=== PATIENT | male | born 1990 | race Caucasian/White ===

== ENCOUNTER 2019-04-14 15:18 | Emergency (ER) | payer SELFPAY ==
[2019-04-14 15:22] VITALS: BP 149/104; PULSE 86; RESP 18; TEMP 36.1; O2SAT 98
--- NOTE | 2019-04-14 15:45 | ED.GENADUL_ITS ---
Discharge Plan Disposition Patient Disposition: HOME Condition: Good Discharge Details Chief Complaint: Sorethroat Clinical Impression: Exposure to the flu, Acute pharyngitis Primary Care Provider: None,None ED Provider: Piper Elizabeth Home Meds and New Rx's Prescriptions: New oseltamivir [Tamiflu] 75 mg capsule 75 mg PO DAILY Qty: 10 RF: 0 Continued sertraline 100 mg Tablet 100 mg PO DAILY RF: 0 lisinopril 10 mg Tablet 10 mg PO DAILY RF: 0 Discharge Instructions Instructions: Pharyngitis (ED) Additional Instructions: Encourage water intake. Tylenol and/or ibuprofen as needed for discomfort. You may use honey to help with sore throat. Lozenges may also be of benefit. If you develop difficulty breathing or shortness of breath, inability stay hydrated or other new/worsening symptoms please seek care urgently once again. Was you are exposed to flu recently, please begin the Tamiflu as prescribed to help prevent illness. Please follow-up with primary care next week if not completely improved. Discharge Data Discharge Date/Time-TO BE ENTERED AT DEPARTURE: 04/14/19 16:39 Medical Decision Making Patient is a pleasant 29-year-old male presents today with chief complaint of sore throat that began yesterday. He is concerned that his growth was diagnosed with influenza today. He denies any cough, has had some chills but no fever. Denies any GI upset. No recent travel. Denies any shortness of breath or difficulty breathing. States that he has been hydrating well. No difficulty with eating. On exam, patient appears nontoxic. He does have erythema and mild hypertrophy of bilateral tonsils but no exudate noted. He has no uvular shift, tonsils are equal bilaterally, no trismus or change in his voice. Lungs are clear bilaterally. Patient is negative for rapid flu and negative for strep testing. Discussed these findings with the patient. Advised likely viral etiology. We discussed [id number] home regimens. As the patient was exposed to a known person with test confirmed influenza, we will begin him on prophylactic Tamiflu. We did discuss possible side effects. He was given strict return precautions. Advise a follow-up with primary care in 1 week if not improving. All his questions and concerns were addressed and is in agreement this plan. HPI General Mode of arrival: ambulatory . Date/Time Provider Initiated Documentation: 04/14/19 15:26 . Limitations to Documentation: no limitations . Information obtained by: patient and RN notes reviewed . History of Present Illness 29 year old M presents to the emergency department with the chief complaint of sore throat, aching muscles in neck/back, described as moderate, with intensity rated at 6. Quality is described as aching, and is localized to the mouth. Patient reports no radiation. Patient started experiencing this day(s) (1) and it has been constant. No relieving factors improve symptom(s), No exacerbating factors reported . Patient notes fever/chills (chills, no fever); denies loss of appetite, nausea/vomiting, rash, shortness of breath and weakness. Patient did receive the following treatments prior to arrival, none Related Data Home Medications Medication Instructions Recorded Confirmed lisinopril 10 mg PO DAILY 04/14/19 04/14/19 oseltamivir [Tamiflu] 75 mg PO DAILY #10 cap 04/14/19 sertraline 100 mg PO DAILY 04/14/19 04/14/19 Previous Rx's Medication Instructions Recorded oseltamivir [Tamiflu] 75 mg PO DAILY #10 cap 04/14/19 Allergies Allergy/AdvReac Type Severity Reaction Status Date / Time No Known Allergies Allergy Unverified 04/14/19 15:26 General Stated Complaint: GenMedical TYREE: 3 Review of Systems Constitutional Constitutional: Reports as per HPI and Denies headache(s) Eyes Eyes: Reports as per HPI, Denies eye discharge and Denies irritation ENT Ears, Nose, Mouth, and Throat: Reports as per HPI and Denies headache(s) Cardiovascular Cardiovascular: Reports as per HPI, Denies chest pain and Denies dyspnea Respiratory Respiratory: Reports as per HPI and Denies dyspnea Gastrointestinal Gastrointestinal: Reports as per HPI, Denies abdominal pain, Denies change in bowel habits, Denies nausea and Denies vomiting Integumentary/Breasts Skin/Breast: Reports as per HPI and Denies rash Neurologic Neurologic: Reports as per HPI and Denies headache(s) [facility] Social History Smoking/Tobacco Use Status: Never Alcohol Intake: current Drug use: Never Substance use type: does not use Exam Const General: cooperative, healthy appearing, comfortable, no acute distress, well developed and well groomed Nutritional Appearance: well nourished and overweight Orientation: alert and awake [facility] Head: normal to inspection, normocephalic and atraumatic Ears: hearing grossly normal bilaterally, external ears normal and TM's normal bilaterally General nose exam: external nose normal and nares normal Face and sinus: normal facial exam, sinuses nontender and face symmetric Mouth: oral mucosae normal, lip normal, tongue normal, oropharynx normal and moist mucous membranes Teeth and gingiva: dentition normal Throat: posterior oropharynx abnormal (mild erythema), tonsils normal and uvula midline Eyes General: appearance normal, both eyes and all related structures Neck Neck: normal visual inspection, full ROM, no lymphadenopathy and no meningeal signs Resp Effort & Inspection: normal respiratory effort, able to speak in complete sentences and no respiratory distress Auscultation: clear to auscultation bilaterally, no rales, no rhonchi and no wheezes Cardio Rate: regular rate Rhythm: regular rhythm Heart Sounds: S1 normal and S2 normal Skin General skin exam: no rashes or lesions noted Neuro General: alert and awake Cognition: normal cognition Speech: speech normal Gait: normal gait Psych Appearance: grossly normal and well kempt Mental Status: mental status grossly normal Speech and Movement: speech and movement normal Course Vital Signs Vital signs: Vital Signs Temperature 36.1 C L 04/14/19 15:22 Pulse 86 04/14/19 15:22 Respiratory Rate 18 04/14/19 15:22 Blood Pressure 149/104 H 04/14/19 15:22 Pulse Oximetry 98 04/14/19 15:22 Temperature 36.1 C L 04/14/19 15:22 Temperature Source Temporal Artery Scan 04/14/19 15:22 Pulse 86 04/14/19 15:22 Respiratory Rate 18 04/14/19 15:22 Blood Pressure 149/104 H 04/14/19 15:22 Blood Pressure Position Supine 04/14/19 15:22 Pulse Oximetry 98 04/14/19 15:22 Oxygen Delivery Method Room Air 04/14/19 15:22 Oxygen Flow Rate 0 04/14/19 15:22 Pain Level 6 04/14/19 15:22
[2019-04-14 16:32] VITALS: BP 138/94; PULSE 74; RESP 20; TEMP 36.8; O2SAT 98
== END 2019-04-14 16:39 | disposition home or self-care (01) ==
PROVIDERS: Emergency Provider Physician Assistant
DX: J11.1 Influenza due to unidentified influenza virus with other respiratory manifestations (principal)
CPT/HCPCS: 87449; 87880; 99283; 87081

== ENCOUNTER 2020-06-15 18:21 | Outpatient (REF) | payer BC, SELFPAY ==
[2020-06-15 21:34] LABS: Hemoglobin A1C 5.7 % (<5.7)
[2020-06-15 21:47] LABS: ALT 104 U/L (16-63); AST 53 U/L (15-37); Calculated LDL 83 mg/dL (<100); Cholesterol 151 mg/dL (<200); HDL Cholesterol 44 mg/dL (40-60); Triglyceride 120 mg/dL (<150)
[2020-06-17 09:12] LABS: HBs Antibody, Quant <3.1 mIU/mL (See Note); Hepatitis B Surface Ab Negative (See Note)
[2020-06-17 09:17] LABS: Hepatitis B Surface Ag Negative (Negative)
[2020-06-17 09:53] LABS: HIV-1/2 Ag & Ab Screen Negative (Negative)
[2020-06-17 11:20] LABS: Syphilis Serology (RPR) Negative (Negative)
[2020-06-17 15:27] LABS: HCV RNA Qualitative Undetected (Undetected)
== END 2020-06-15 18:22 | disposition home or self-care (01) ==
LOC: NCHCN 18:21
PROVIDERS: Visit Provider Nurse Practitioner Family
DX: Z11.3 Encounter for screening for infections with a predominantly sexual mode of transmission (principal); Z11.4 Encounter for screening for human immunodeficiency virus [HIV]; Z11.59 Encounter for screening for other viral diseases; E66.9 Obesity, unspecified; Z13.1 Encounter for screening for diabetes mellitus
CPT/HCPCS: 80061; 86706; 87340; 87389; 87522; 83036; 84450; 84460; 86592

== ENCOUNTER 2020-06-17 17:45 | Outpatient (REF) | payer BC, SELFPAY ==
[2020-06-17 19:42] LABS: Bilirubin Negative (Negative); Blood Trace-lysed (Negative); Clarity Clear (Clear); Glucose Negative (Negative); Ketones Negative (Negative); Leukocyte Esterase Negative (Negative); Nitrite Negative (Negative); Specific Gravity >= 1.030 (1.005-1.025); Urobilinogen 0.2 EU/dL (Up TO 0.2); pH 5.5 (5-8)
[2020-06-17 19:49] LABS: Bacteria Negative HPF (Negative); C & S Indicated? No; Casts Negative LPF (Negative); Crystals Negative HPF (Negative); Epithelial Cells Rare HPF (Negative); Mucus Negative (Negative); RBC 0-2 HPF (0-2); WBC 0-2 HPF (0-5)
[2020-06-22 10:20] LABS: Chlamydia Result Negative (Negative); GC Result Negative (Negative)
== END 2020-06-17 17:46 | disposition home or self-care (01) ==
LOC: NCHCN 17:45
PROVIDERS: Visit Provider Nurse Practitioner Family
DX: R31.9 Hematuria, unspecified (principal)
CPT/HCPCS: 87491; 87591; 81003; 81015

== ENCOUNTER 2020-08-30 15:12 | Outpatient (REF) | payer BC, SELFPAY ==
[2020-08-30 21:39] LABS: HCT 45.5 % (40.0-50.0); HGB 15.2 g/dL (13.5-17.5); MCH 27.2 pg (27.0-33.0); MCHC 33.4 % (32.0-36.0); MCV 81.5 fL (80-95); MPV 9.8 fL (8.0-11.0); Platelet Count 281 10^3/uL (130-400); RBC 5.58 10^6/uL (4.36-5.78); RDW 12.7 % (11.8-14.1); RDW-SD 37.7 fL; WBC 12.22 10^3/uL (4.4-10.8)
[2020-08-30 22:04] LABS: ALT 74 U/L (16-63); AST 34 U/L (15-37); Albumin 3.8 g/dL (3.4-5.0); Alkaline Phosphatase 68 U/L (46-116); Anion Gap 10.5 mmol/L (3-11); BUN 11 mg/dL (7-18); Bilirubin, Total 0.9 mg/dL (0.2-1.0); CO2 25.5 mmol/L (21.0-32.0); CREATININE 0.8 mg/dL (0.70-1.30); Chloride 105 mmol/L (98-107); Glucose 102 mg/dL (74-106); Potassium 3.8 mmol/L (3.5-5.1); Sodium 141 mmol/L (136-145); Total Protein 7.5 g/dL (6.4-8.2); Uric Acid 7.6 mg/dL (3.5-7.2)
== END 2020-08-30 15:13 | disposition home or self-care (01) ==
LOC: LBN 15:12
PROVIDERS: Visit Provider Nurse Practitioner Family
DX: M25.561 Pain in right knee (principal); R94.5 Abnormal results of liver function studies
CPT/HCPCS: 80053; 85027; 84550

== ENCOUNTER 2021-09-14 18:45 | Outpatient (REF) | payer BC, SELFPAY ==
[2021-09-14 20:54] LABS: ALT 70 U/L (16-63); AST 40 U/L (15-37); Albumin 3.9 g/dL (3.4-5.0); Alkaline Phosphatase 72 U/L (46-116); Anion Gap 9.8 mmol/L (3-11); BUN 16 mg/dL (7-18); Bilirubin, Total 0.4 mg/dL (0.2-1.0); CO2 27.2 mmol/L (21.0-32.0); CREATININE 0.8 mg/dL (0.70-1.30); Calcium 9.6 mg/dL (8.5-10.1); Chloride 104 mmol/L (98-107); Glucose 97 mg/dL (74-106); Potassium 4.7 mmol/L (3.5-5.1); Sodium 141 mmol/L (136-145); Total Protein 8.3 g/dL (6.4-8.2); Uric Acid 8.2 mg/dL (3.5-7.2)
== END 2021-09-14 18:46 | disposition home or self-care (01) ==
LOC: NCHCN 18:45
PROVIDERS: Visit Provider Nurse Practitioner Family
DX: M10.9 Gout, unspecified (principal); R94.5 Abnormal results of liver function studies
CPT/HCPCS: 80053; 84550

== ENCOUNTER 2022-03-23 10:16 | Outpatient (REF) | payer BC, SELFPAY ==
[2022-03-25 11:51] LABS: COVID-19 RT-PCR UVMMC Result Positive (Negative)
== END 2022-03-23 10:17 | disposition home or self-care (01) ==
LOC: NCHCN 10:16
PROVIDERS: Visit Provider Physician Assistant Medical
DX: J06.9 Acute upper respiratory infection, unspecified (principal); Z20.822 Contact with and (suspected) exposure to COVID-19
CPT/HCPCS: U0003

== ENCOUNTER 2022-10-14 17:20 | Emergency (ER) | payer BC, SELFPAY ==
[2022-10-14 17:24] VITALS: BP 182/95; PULSE 87; RESP 18; TEMP 36.5; O2SAT 99
--- NOTE | 2022-10-14 17:28 | ED.GENADUL_ITS ---
Discharge Plan Disposition Patient Disposition: Home Discharge Details Clinical Impression: Acute knee pain, Bursitis Primary Care Provider: None,None ED Provider: Ovidio Harris Home Meds and New Rx's Prescriptions: No Action buspirone 10 mg tablet 10 mg PO BID montelukast 10 mg tablet 10 mg PO DAILY sertraline 100 mg Tablet 100 mg PO DAILY indomethacin 50 mg Capsule 50 mg PO PRN PRN Discharge Instructions Instructions: Knee Pain (ED) Additional Instructions: You can take Tylenol 1 g every 6 hours for the pain you also take some ibuprofen. Apply ice to the knee for comfort and to decrease the swelling. Please follow-up Doctor next week as needed. You may use the Jorge A wrap for comfort and support Medical Decision Making X-rays of the knee and to the right knee did not reveal any abnormalities other than mild effusion. Patient will be diagnosed with knee bursitis. Treatment plan discussed with patient HPI General Date/Time Provider Initiated Documentation: 10/14/22 17:28 . HPI Narrative: He states that if he has been having right knee pain since states that the pain started after work. Pain is worse with ambulating. No clicking or locking. Does not recall any direct trauma to the right knee. 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 He does not remember any incident that would have caused the pain to start. At times he does have to kneel on his right knee at work. The pain is anterior and inferior to the patella. Mild swelling of the knee. Related Data Home Medications Medication Instructions Recorded Confirmed sertraline 100 mg tablet 100 mg PO DAILY 04/14/19 10/14/22 buspirone 10 mg tablet 10 mg PO BID 04/28/21 10/14/22 montelukast 10 mg tablet 10 mg PO DAILY 04/28/21 10/14/22 indomethacin 50 mg capsule 50 mg PO PRN PRN 10/14/22 10/14/22 Allergies Allergy/AdvReac Type Severity Reaction Status Date / Time No Known Allergies Allergy Verified 07/07/21 09:14 General Stated Complaint: Orthopedic TYREE: 4 Review of Systems Narrative: Constitutional negative MSK see HPI skin normal hematologic negative neuro negative PFSH All Active Problems (Updated 10/14/22 @ 18:21 by Ovidio Harris MD) Acute knee pain (Acute) Bursitis (Acute) Left wrist sprain (Acute) Anxiety (Chronic) Depression (Chronic) Sleep apnea (Acute) HTN (hypertension) (Chronic) Medical History Acute pharyngitis Exposure to the flu Social History Smoking/Tobacco Use Status: Never Smoking risk assessment performed?: Yes Alcohol Intake: current Alcohol Intake frequency: a few times a month Drug use: Never Substance use type: does not use Do you feel safe at home: Yes Do you feel safe in your relationship?: Yes Exam Narrative Exam Narrative: General: A,A Ox3, Calm, no apparent distress, well developed, pleasant and cooperative Head Size/Shape: normocephalic, atraumatic Eyes Pupils: PERRLA Extraocular Mobility: intact and symmetrical Conjunctiva: non-injected, anicteric, no discharge Respiratory Effort: no dyspnea Musculoskeletal System Joints, Bones, and Muscles: no deformities Right knee. No significant effusion. Full range of motion. He does have some point tenderness anteriorly inferior to the patella. Extremities: warm and well-perfused, no cyanosis, capillary refill <2 seconds Skin Skin Inspection: no rash, no lesions, no bruising Neurological Motor: normal tone, normal strength, moving all extremities equally Psychiatric: good insight, good judgement, normal mood and affect Course Vital Signs Vital signs: Vital Signs Temperature 36.5 C 10/14/22 17:24 Pulse 87 10/14/22 17:24 Respiratory Rate 18 10/14/22 17:24 Blood Pressure 182/95 H 10/14/22 17:24 Pulse Oximetry 99 10/14/22 17:24 Temperature 36.5 C 10/14/22 17:24 Pulse 87 10/14/22 17:24 Respiratory Rate 18 10/14/22 17:24 Blood Pressure 182/95 H 10/14/22 17:24 Blood Pressure Position Sitting 10/14/22 17:24 Pulse Oximetry 99 10/14/22 17:24 Oxygen Delivery Method Room Air 10/14/22 17:24 Oxygen Flow Rate 0 10/14/22 17:24 Pain Level 7 10/14/22 17:24
--- NOTE | 2022-10-14 17:30 | DI.RAD_ITS ---
Exam(s) XR KNEE RT 3V AP,LAT,TAMMY EXAM: XR KNEE RT 3V AP,LAT,TAMMY CLINICAL HISTORY: pain. TECHNIQUE: 2D digital imaging was performed. Three views. COMPARISON: No exams were available for comparison FINDINGS: BONES: No acute fracture is present. Mild deformity of proximal fibula seen on the lateral view, con sistent with old healed fracture. No bony destructive lesion is seen. JOINTS: Patella somewhat inferiorly positioned. Question of a small joint effusion. SOFT TISSUE: Anterior soft tissue swelling could be posttraumatic or represent bursitis. IMPRESSION: Anterior soft tissue swelling DATA REPOSITORY: RADIATION DOSE DELIVERED:
--- NOTE | 2022-10-14 18:53 | DI.VRAD_ITS ---
Addendum created by Sandra Mars MD on 10/14/2022 7:00:00 PM EDT: THIS REPORT CONTAINS FINDINGS THAT MAY BE CRITICAL TO PATIENT CARE. The findings were verbally communicated via telephone conference with CONI NIXON at 6:58 PM EDT on 10/14/2022. The findings were acknowledged and understood. Per the ordering provider, the patient has no known trauma and his quadriceps tendon appears to be functioning appropriately. He does have a slight limp along with symptoms clinically worrisome for bursitis. Synovitis is not excluded, given the heterogeneous appearance of the joint effusion. An MRI remains recommended along with orthopedics consult. The ordering physician is reaching out to the patient. Initial report created on 10/14/2022 6:52:21 PM EDT: PROCEDURE INFORMATION: Exam: XR Right Knee Exam date and time: 10/14/2022 6:11 PM Age: 32 years old Clinical indication: Pain; Knee; Right TECHNIQUE: Imaging protocol: Radiologic exam of the right knee. Views: 3 views. COMPARISON: No relevant prior studies available. FINDINGS: Bones/joints: No acute fracture identified. There is some irregularity to the proximal fibula which could represent an old fracture. The patella is somewhat low riding in appearance. The Insall-Salvati ratio is 0.78 which corresponds to patella baja. The distal quadriceps tendon is poorly delineated. These findings raise the possibility of a distal quadriceps/distal quadriceps tendon injury. Correlation with history and physical exam findings suggested. Soft tissues: There is anterior soft tissue swelling. This can be seen secondary to trauma or bursitis. If bursitis, this could be infectious, inflammatory, or hemorrhagic. There is a suprapatellar knee effusion but is somewhat mottled in appearance. Heterogeneous joint effusions can be seen with lipohemarthrosis (which can be a sign of occult fracture), synovitis, or even non-radiodense loose bodies. No unusual soft tissue calcifications. IMPRESSION: 1. No acute fracture identified. Some irregularity to the proximal fibula which could represent an old fracture. 2. The patella is somewhat low riding in appearance. The Insall-Salvati ratio is 0.78 which corresponds to patella baja. The distal quadriceps tendon is poorly delineated. These findings raise the possibility of a distal quadriceps/distal quadriceps tendon injury. Correlation with history and physical exam findings suggested. 3. There is anterior soft tissue swelling. This can be seen secondary to trauma or bursitis. If bursitis, this could be infectious, inflammatory, or hemorrhagic. 4. There is a suprapatellar knee effusion but is somewhat mottled in appearance. Heterogeneous joint effusions can be seen with lipohemarthrosis (which can be a sign of occult fracture), synovitis, or even non-radiodense loose bodies. 5. Other findings/details as above. For the above findings, a dedicated MRI is recommended for further evaluation. An orthopedics consult may also be beneficial. Dictated and Authenticated by: Sandra Mars MD. Ordering:LUCIEN Nolan MD
--- NOTE | 2022-10-14 19:02 | W.EDPROG ---
Date of service: 10/14/22 Time of Service: 19:02 Medical Decision Making Radiology: Findings discussed with the read. There is no trauma per se to the knee therefore I am not concerned regarding an occult fracture. I am not concerned about a quadricep tendon rupture. The patient will be provided an outpatient orthopedic follow-up visit for determination of possible further work-up. Discharge Plan Disposition Patient Disposition: Home Discharge Details Clinical Impression: Acute knee pain, Bursitis Primary Care Provider: None,None ED Provider: Ovidio Harris Home Meds and New Rx's Prescriptions: No Action buspirone 10 mg tablet 10 mg PO BID montelukast 10 mg tablet 10 mg PO DAILY sertraline 100 mg Tablet 100 mg PO DAILY indomethacin 50 mg Capsule 50 mg PO PRN PRN Discharge Instructions Instructions: Knee Pain (ED) Additional Instructions: You can take Tylenol 1 g every 6 hours for the pain you also take some ibuprofen. Apply ice to the knee for comfort and to decrease the swelling. Please follow-up Doctor next week as needed. You may use the Jorge A wrap for comfort and support Discharge Data Discharge Date/Time-TO BE ENTERED AT DEPARTURE: 10/14/22 18:36
== END 2022-10-14 18:36 | disposition home or self-care (01) ==
LOC: ER 18:49
PROVIDERS: Emergency Provider Emergency Medicine
DX: M70.51 Other bursitis of knee, right knee (principal); M25.561 Pain in right knee
CPT/HCPCS: 73562; 99283

== ENCOUNTER 2022-10-26 16:12 | Outpatient (REF) | payer BC, SELFPAY ==
[2022-10-26 20:36] LABS: HCT 45.9 % (40.0-50.0); HGB 15.6 g/dL (13.5-17.5); MCH 27.7 pg (27.0-33.0); MCV 82 fL (80-95); MPV 9.6 fL (8.0-11.0); Platelet Count 330 10^3/uL (130-400); RBC 5.63 10^6/uL (4.36-5.78); RDW 12.6 % (11.8-14.1); RDW-SD 37.5 fL; WBC 10.39 10^3/uL (4.4-10.8)
[2022-10-26 20:59] LABS: ALT 90 U/L (16-63); AST 54 U/L (15-37); Alkaline Phosphatase 76 U/L (46-116); Anion Gap 11.5 mmol/L (3-11); BUN 10 mg/dL (7-18); Bilirubin, Total 0.8 mg/dL (0.2-1.0); CO2 26.5 mmol/L (21.0-32.0); CREATININE 0.7 mg/dL (0.70-1.30); Calcium 9.4 mg/dL (8.5-10.1); Chloride 100 mmol/L (98-107); Glucose 80 mg/dL (74-106); Potassium 3.9 mmol/L (3.5-5.1); Sodium 138 mmol/L (136-145)
[2022-10-26 21:11] LABS: Uric Acid 8.9 mg/dL (3.5-7.2)
== END 2022-10-26 16:13 | disposition home or self-care (01) ==
LOC: NCHCN 16:12
PROVIDERS: Visit Provider Nurse Practitioner Family
DX: I10 Essential (primary) hypertension (principal); M10.9 Gout, unspecified; E66.8 Other obesity; Z68.42 Body mass index [BMI] 45.0-49.9, adult
CPT/HCPCS: 80053; 85027; 84550

== ENCOUNTER 2023-04-18 18:46 | Outpatient (REF) | payer BC, SELFPAY ==
[2023-04-18 21:17] LABS: HCT 46.9 % (40.0-50.0); HGB 15.7 g/dL (13.5-17.5); MCHC 33.5 % (32.0-36.0); MCV 81 fL (80-95); MPV 9.2 fL (8.0-11.0); Platelet Count 344 10^3/uL (130-400); RBC 5.82 10^6/uL (4.36-5.78); RDW 12.6 % (11.8-14.1); RDW-SD 36.1 fL; WBC 10.41 10^3/uL (4.4-10.8)
[2023-04-18 21:35] LABS: ALT 79 U/L (16-63); AST 42 U/L (15-37); Albumin 3.8 g/dL (3.4-5.0); Alkaline Phosphatase 75 U/L (46-116); Anion Gap 10.8 mmol/L (3-11); BUN 14 mg/dL (7-18); Bilirubin, Total 0.8 mg/dL (0.2-1.0); CO2 28.2 mmol/L (21.0-32.0); CREATININE 0.7 mg/dL (0.70-1.30); Calcium 9.5 mg/dL (8.5-10.1); Calculated LDL 98 mg/dL (<100); Chloride 104 mmol/L (98-107); Cholesterol 169 mg/dL (<200); Estimated GFR 123.23 (mL/min/1.73m2); Glucose 100 mg/dL (74-106); HDL Cholesterol 46 mg/dL (40-60); Potassium 4.2 mmol/L (3.5-5.1); Sodium 143 mmol/L (136-145); Triglyceride 127 mg/dL (<150)
[2023-04-18 21:38] LABS: Hemoglobin A1C 5.9 % (<5.7)
[2023-04-18 21:49] LABS: Uric Acid 8.2 mg/dL (3.5-7.2)
[2023-04-24 12:27] LABS: Testosterone, Total 458 ng/dL (240-950)
== END 2023-04-18 18:47 | disposition home or self-care (01) ==
LOC: NCHCN 18:46
PROVIDERS: PCP Nurse Practitioner Family; Referring Provider Nurse Practitioner Family; Visit Provider Nurse Practitioner Family
DX: F52.21 Male erectile disorder (principal); R94.5 Abnormal results of liver function studies; M10.9 Gout, unspecified; R79.89 Other specified abnormal findings of blood chemistry; R73.09 Other abnormal glucose; E66.8 Other obesity
CPT/HCPCS: 80053; 80061; 84403; 85027; 83036; 84550

== ENCOUNTER 2023-04-18 23:28 | Emergency (ER) | payer BC, SELFPAY ==
[2023-04-19 00:15] VITALS: BP 166/92; PULSE 70; RESP 18; TEMP 36.7; O2SAT 96
--- NOTE | 2023-04-19 00:30 | ED.GENADUL_ITS ---
HPI General Mode of arrival: ambulatory . Date/Time Provider Initiated Documentation: 04/19/23 00:20 . Limitations to Documentation: no limitations . Information obtained by: patient, RN notes reviewed and old records reviewed . HPI Narrative: 33-year-old male presents to the ER with a chief complaint of right upper dental pain and tooth pain. He reports that on Sunday his tooth broke and tonight he is unable to go to sleep due to the pain. He did take Tylenol and ibuprofen as well to no relief. Does have a history of obstructive sleep apnea gout epistaxis pharyngitis hypertension. No area of abscess or fluctuance noted. He does have a broken tooth on #2. Speaking in full sentences no associated symptoms. I did offer a dental block which patient declined at this time. I will give him HurriCaine gel, Augmentin and tramadol to go. Related Data Home Medications Medication Instructions Recorded Confirmed sertraline 100 mg tablet 100 mg PO DAILY 04/14/19 01/29/23 montelukast 10 mg tablet 10 mg PO DAILY 04/28/21 01/29/23 indomethacin 50 mg capsule 50 mg PO PRN PRN 10/14/22 01/29/23 allopurinol 300 mg tablet 300 mg PO DAILY 01/19/23 01/29/23 liraglutide (weight loss) 3 mg/0.5 0.6 mg subcut DAILY 01/19/23 01/29/23 mL (18 mg/3 mL) subcut pen injector (Saxenda) buspirone 5 mg tablet 5 mg PO DAILY 01/29/23 01/29/23 amoxicillin 875 mg-potassium 1 tab PO BID 7 days #14 tabs 04/19/23 clavulanate 125 mg tablet Previous Rx's Medication Instructions Recorded amoxicillin 875 mg-potassium 1 tab PO BID 7 days #14 tabs 04/19/23 clavulanate 125 mg tablet Allergies Allergy/AdvReac Type Severity Reaction Status Date / Time No Known Allergies Allergy Verified 01/29/23 08:20 General Stated Complaint: DentalOral TYREE: 4 Review of Systems All systems reviewed & are unremarkable except as noted in HPI and below ENT Ears, Nose, Mouth, and Throat: Reports as per HPI and Reports dental pain Exam HENMT Teeth and gingiva: abnormal tooth or associated gingiva upper right second molar tender and dentin fractured; without associated gingival fluctuance and pulp not exposed, caries and fair dentition Throat: posterior oropharynx normal Course Vital Signs Vital signs: Vital Signs Temperature 36.7 C 04/19/23 00:15 Pulse 70 04/19/23 00:15 Respiratory Rate 18 04/19/23 00:15 Blood Pressure 166/92 H 04/19/23 00:15 Pulse Oximetry 96 04/19/23 00:15 Temperature 36.7 C 04/19/23 00:15 Pulse 70 04/19/23 00:15 Respiratory Rate 18 04/19/23 00:15 Respiratory Effort Normal 04/19/23 00:18 Blood Pressure 166/92 H 04/19/23 00:15 Pulse Oximetry 96 04/19/23 00:15 Pain Level 8 04/19/23 00:15 Medical Decision Making 33-year-old male presents to the ER with a chief complaint of right upper dental pain and tooth pain. He reports that on Sunday his tooth broke and tonight he is unable to go to sleep due to the pain. He did take Tylenol and ibuprofen as well to no relief. Does have a history of obstructive sleep apnea gout epistaxis pharyngitis hypertension. No area of abscess or fluctuance noted. He does have a broken tooth on #2. Speaking in full sentences no associated symptoms. I did offer a dental block which patient declined at this time. I will give him HurriCaine gel, Augmentin and tramadol to go. Patient discharged to home in stable condition and dental resources. Quality:SDOH Health Related Social Needs: No Data to Display PFSH All Active Problems (Updated 04/19/23 @ 00:33 by Elena Smyth NP) Toothache (Acute) Left wrist sprain (Acute) Anxiety (Chronic) Depression (Chronic) Sleep apnea (Acute) HTN (hypertension) (Chronic) Medical History (Updated 04/19/23 @ 00:33 by Elena Smyth NP) Essential hypertension Allergic rhinitis Blood in urine Prediabetes Sleep walking disorder Obstructive sleep apnea Gout Elevated liver function tests BMI 45.0-49.9, adult Epistaxis Acute pharyngitis Exposure to the flu Social History Smoking/Tobacco Use Status: Never Smoking risk assessment performed?: Yes Alcohol Intake: current Alcohol Intake frequency: a few times a month Drug use: Never Substance use type: does not use Do you feel safe at home: Yes Do you feel safe in your relationship?: Yes Discharge Plan Disposition Patient Disposition: Home Condition: Stable Discharge Details Clinical Impression: Toothache Primary Care Provider: Marnie Moreno ED Provider: lEena Smyth Home Meds and New Rx's Prescriptions: New amoxicillin-pot clavulanate 875-125 mg tablet 1 tab PO BID 7 Days Qty: 14 0RF No Action allopurinol 300 mg tablet 300 mg PO DAILY Saxenda 3 mg/0.5 mL (18 mg/3 mL) pen injector 0.6 mg subcut DAILY buspirone 5 mg tablet 5 mg PO DAILY montelukast 10 mg tablet 10 mg PO DAILY sertraline 100 mg Tablet 100 mg PO DAILY indomethacin 50 mg Capsule 50 mg PO PRN PRN Discharge Instructions Instructions: Toothache (ED) Additional Instructions: You do still need to see a dentist. Please use the HurriCaine gel up to 3 times daily as directed. Take the tramadol twice daily as needed for moderate to severe pain not relieved by Tylenol or ibuprofen. Take the antibiotic with yogurt or probiotic as directed. [place] your teeth twice daily. Rinse your mouth out after eating or drinking anything. Follow up with primary care provider in 3-5 days. Return to ED sooner if any worsening or concerns. Increase oral fluids. Please take Tylenol or Ibuprofen with food every 4-6 hours as needed for pain and swelling. Referrals: Marnie Moreno [Primary Care Provider] - Discharge Data Discharge Date/Time-TO BE ENTERED AT DEPARTURE: 04/19/23 00:38
[2023-04-19] MEDS: Amoxicillin 875/Clav. 125 TAB PO (00:33)
[2023-04-19] MEDS: Benzocaine 20% Gel 30 GM JAR MM (00:33)
== END 2023-04-19 00:38 | disposition home or self-care (01) ==
PROVIDERS: Emergency Provider Registered Nurse Emergency; PCP Nurse Practitioner Family
DX: K08.89 Other specified disorders of teeth and supporting structures (principal); S02.5XXA Fracture of tooth (traumatic), initial encounter for closed fracture; I10 Essential (primary) hypertension; X58.XXXA Exposure to other specified factors, initial encounter
CPT/HCPCS: 99283

== ENCOUNTER 2023-08-14 17:50 | Emergency (ER) | payer BC, SELFPAY ==
[2023-08-14] VITALS (13 sets, daily range): BP systolic 110–147; BP diastolic 77–119; PULSE 75–106; RESP 13–26; TEMP 35.9; O2SAT 95–97
--- NOTE | 2023-08-14 17:45 | RT.EKG_ITS ---
APPROVED REPORT Exam: Resting ECG Reason for Exam: chest pain Patient Location: E HR:86 bpm ECG Measurements Heart Rate 86 AXIS WV 153 P 49 QRSd 106 QRS 19 QT 357 T 22 QTc 428 Conclusion Sinus rhythm 86 normal axis no stemi
--- NOTE | 2023-08-14 18:00 | DI.RAD_ITS ---
Exam(s) XR PORTABLE CHEST AP EXAM: XR PORTABLE CHEST AP CLINICAL HISTORY: chest pain. TECHNIQUE: 2D digital imaging was performed. COMPARISON: No exams were available for comparison FINDINGS: Single AP portable view. Heart size is upper normal. The mediastinum is not widened. Lungs are clear. No infiltrates nor obvious pleural effusions. IMPRESSION: No acute pulmonary findings on this single AP portable view of the chest. DATA REPOSITORY: RADIATION DOSE DELIVERED:
[2023-08-14 18:17] LABS: Abs Immature Grans 0.08 10^3/uL (0.0-0.06); Absolute Basophil Count 0.06 10^3/uL (0.0-0.2); Absolute Lymphocyte Count 2.35 10^3/uL (1.2-3.4); Absolute Monocyte Count 0.51 10^3/uL (0.1-0.8); Absolute Neutrophil Count 8.17 10^3/uL (1.2-6.7); Basophils % 0.5 %; Eosinophils % 1.2 %; HCT 46.9 % (40.0-50.0); HGB 15.7 g/dL (13.5-17.5); Immature Grans % 0.7 %; Lymphocytes % 20.8 %; MCH 27.6 pg (27.0-33.0); MCHC 33.5 % (32.0-36.0); MCV 83 fL (80-95); MPV 9.2 fL (8.0-11.0); Monocytes % 4.5 %; Neutrophils % 72.3 %; Platelet Count 298 10^3/uL (130-400); RBC 5.68 10^6/uL (4.36-5.78); RDW 13.2 % (11.8-14.1); RDW-SD 39.4 fL
[2023-08-14 18:22] LABS: Absolute Eosinophil Count 0.14 10^3/uL (0.0-0.7)
[2023-08-14] MEDS: Aspirin 81 MG CHEW 324 MG CH (18:25)
[2023-08-14] MEDS: nitroGLYcerin 0.4 MG TAB SL (18:25)
[2023-08-14 18:36] LABS: ALT 104 U/L (16-63); AST 69 U/L (15-37); Albumin 3.6 g/dL (3.4-5.0); Alkaline Phosphatase 81 U/L (46-116); BUN 13 mg/dL (7-18); Bilirubin, Total 0.5 mg/dL (0.2-1.0); CREATININE 0.8 mg/dL (0.70-1.30); Calcium 9.4 mg/dL (8.5-10.1); Chloride 100 mmol/L (98-107); Estimated GFR 118.36 (mL/min/1.73m2); Glucose 102 mg/dL (74-106); Lipase 49 U/L (16-77); NT-proBNP 10 pg/mL (<300); Potassium 3.9 mmol/L (3.5-5.1); Sodium 137 mmol/L (136-145); Total Protein 8.7 g/dL (6.4-8.2); Troponin I < 50 ng/L (< or =60)
--- NOTE | 2023-08-14 19:51 | ED.GENADUL_ITS ---
Discharge Plan Disposition Patient Disposition: Home Condition: Stable Discharge Details Clinical Impression: Chest pain Primary Care Provider: Marnie Moreno ED Provider: Navya Carbajal Home Meds and New Rx's Prescriptions: No Action allopurinol 300 mg tablet 300 mg PO DAILY Saxenda 3 mg/0.5 mL (18 mg/3 mL) pen injector 0.6 mg subcut DAILY Hold Instructions: Pt Stopped/Never Started buspirone 5 mg tablet 5 mg PO DAILY montelukast 10 mg tablet 10 mg PO DAILY sertraline 100 mg Tablet 100 mg PO DAILY indomethacin 50 mg Capsule 50 mg PO PRN PRN lisdexamfetamine 30 mg capsule 30 mg PO DAILY Patient Comments: TAKE 1 CAPSULE BY MOUTH EVERY DAY Discharge Instructions Instructions: Chest Pain (DC) Additional Instructions: please return to ED if you develop persistent symptoms follow up with your PCP for re-evaluation and outpatient stress testing HPI General Date/Time Provider Initiated Documentation: 08/14/23 18:08 . Limitations to Documentation: no limitations . Information obtained by: patient . HPI Narrative: 33-year-old gentleman with past medical history of obesity, MOY, hypertension presents for evaluation of chest pain. He reports onset of symptoms yesterday while at rest. Since yesterday has had several intermittent episodes. No exacerbating or relieving symptoms. Symptoms not associated with exertion. He reports that the chest pain feels like he is being squeezed in a bearhug. No radiation. Associated with some mild shortness of breath. No nausea, vomiting or diaphoresis pheresis. The patient symptoms are brief and resolve without any intervention. He saw his primary care provider today who instructed him to come to the emergency department for further evaluation. Related Data Home Medications Medication Instructions Recorded Confirmed sertraline 100 mg tablet 100 mg PO DAILY 04/14/19 08/14/23 montelukast 10 mg tablet 10 mg PO DAILY 04/28/21 08/14/23 indomethacin 50 mg capsule 50 mg PO PRN PRN 10/14/22 08/14/23 allopurinol 300 mg tablet 300 mg PO DAILY 01/19/23 08/14/23 liraglutide (weight loss) 3 mg/0.5 0.6 mg subcut DAILY 01/19/23 08/14/23 mL (18 mg/3 mL) subcut pen injector (Saxenda) buspirone 5 mg tablet 5 mg PO DAILY 01/29/23 08/14/23 lisdexamfetamine 30 mg capsule 30 mg PO DAILY 08/14/23 08/14/23 Allergies Allergy/AdvReac Type Severity Reaction Status Date / Time No Known Allergies Allergy Verified 08/14/23 17:58 General Stated Complaint: SOB TYREE: 3 Exam Narrative Exam Narrative: Review of Systems: All systems reviewed & are unremarkable except as noted in HPI and below Obese, no acute distress NCAT PERRL, normal conjunctiva RRR no murmur, no chest wall tenderness Unlabored respiratory effort, clear bilaterally Nondistended abdomen, nontender Extremities w/o deformity, no cyanosis, no edema No rashes or lesions. no focal neurologic deficits Appropriate mood and affect Course Vital Signs Vital signs: Vital Signs Temperature 35.9 C L 08/14/23 17:53 Pulse 90 08/14/23 17:53 Respiratory Rate 22 08/14/23 17:53 Blood Pressure 144/95 H 08/14/23 17:53 Pulse Oximetry 97 08/14/23 17:53 Temperature 35.9 C L 08/14/23 18:52 Temperature Source Oral 08/14/23 18:52 Pulse 81 08/14/23 19:16 Pulse 84 08/14/23 19:16 Respiratory Rate 20 08/14/23 19:16 Respiratory Effort Normal, Non-Labored 08/14/23 18:52 Respiratory Depth Normal 08/14/23 18:52 Respiratory Pattern Normal 08/14/23 18:52 Blood Pressure 110/91 H 08/14/23 19:16 Blood Pressure Mean 97 08/14/23 19:16 Blood Pressure Position Sitting 08/14/23 17:53 Pulse Oximetry 95 08/14/23 18:52 Oxygen Delivery Method Room Air 08/14/23 17:53 Oxygen Flow Rate 0 08/14/23 17:53 Pain Level 0 08/14/23 19:23 Lab/Test Results Lab/Test Results: Laboratory Tests Range/Units 08/14/23 17:55 WBC (4.4-10.8) 10^3/uL 11.30 H RBC (4.36-5.78) 10^6/uL 5.68 Hgb (13.5-17.5) g/dL 15.7 Hct (40.0-50.0) % 46.9 MCV (80-95) fL 83 MCH (27.0-33.0) pg 27.6 MCHC (32.0-36.0) % 33.5 RDW (11.8-14.1) % 13.2 Plt Count (130-400) 10^3/uL 298 MPV (8.0-11.0) fL 9.2 Immature Gran % % 0.7 Neutrophils % % 72.3 Lymphocytes % % 20.8 Monocytes % % 4.5 Eosinophils % % 1.2 Basophils % % 0.5 Nucleated RBC % (0.0-0.3) % 0.0 Absolute Neutrophils (1.2-6.7) 10^3/uL 8.17 H Absolute Lymphocytes (1.2-3.4) 10^3/uL 2.35 Absolute Monocytes (0.1-0.8) 10^3/uL 0.51 Absolute Eosinophils (0.0-0.7) 10^3/uL 0.14 Absolute Basophils (0.0-0.2) 10^3/uL 0.06 Sodium (136-145) mmol/L 137 Potassium (3.5-5.1) mmol/L 3.9 Chloride (98-107) mmol/L 100 Carbon Dioxide (21.0-32.0) mmol/L 28.0 Anion Gap (3-11) mmol/L 9.0 BUN (7-18) mg/dL 13 Creatinine (0.70-1.30) mg/dL 0.8 Est GFR (CKD-EPI 2020) (mL/min/1.73m2) 118.36 Glucose (74-106) mg/dL 102 Calcium (8.5-10.1) mg/dL 9.4 Total Bilirubin (0.2-1.0) mg/dL 0.5 AST (15-37) U/L 69 H ALT (16-63) U/L 104 H Alkaline Phosphatase (46-116) U/L 81 Troponin I (< or =60) ng/L < 50 NT-Pro-B Natriuret Pep (<300) pg/mL 10 Total Protein (6.4-8.2) g/dL 8.7 H Albumin (3.4-5.0) g/dL 3.6 Lipase (16-77) U/L 49 Medical Decision Making Emergent evaluation of chest pain. Patient has risk factors of obesity and hy pertension. Otherwise he has no known coronary disease and has never had chest pain before. Initial differential includes ACS, musculoskeletal pain, respiratory dysfunction. The patient does not really have acute symptoms at this time. Will give full dose aspirin. His EKG is without acute ischemic change. Because his chest pain started over 24 hours ago, will get 1 troponin and additional blood work. This was reviewed and there is no elevation in his troponin. His BNP is normal. His x-ray does not reveal any acute cardiopulmonary etiology. He has not had any return of his symptoms. Heart score 1 at this time I feel he is stable for discharge home. I do recommend that he follow-up closely with his PCP for outpatient stress testing. Medical Records Medical records reviewed: Yes I reviewed the patient's medical records. Lab Data Lab results reviewed: Yes I reviewed the patient's lab results. Quality:SDOH Health Related Social Needs: No Data to Display PFSH All Active Problems Chest pain (Acute) Left wrist sprain (Acute) Anxiety (Chronic) Depression (Chronic) Sleep apnea (Acute) HTN (hypertension) (Chronic) Medical History Essential hypertension Allergic rhinitis Blood in urine Prediabetes Sleep walking disorder Obstructive sleep apnea Gout Elevated liver function tests BMI 45.0-49.9, adult Epistaxis Acute pharyngitis Exposure to the flu Social History Smoking/Tobacco Use Status: Never Smoking risk assessment performed?: Yes Alcohol Intake: current Alcohol Intake frequency: a few times a month Drug use: Never Substance use type: does not use Do you feel safe at home: Yes Do you feel safe in your relationship?: Yes
== END 2023-08-14 19:25 | disposition home or self-care (01) ==
PROVIDERS: Physician Assistant; Emergency Provider Emergency Medicine; PCP Nurse Practitioner Family
DX: R07.9 Chest pain, unspecified (principal); R06.02 Shortness of breath; I10 Essential (primary) hypertension
CPT/HCPCS: 80053; 83690; 93005; 99285; 71045; 83880; 84484; 85025; 93010; 99284

== ENCOUNTER → 2023-08-23 00:33 | Outpatient (CLI) | payer BC, SELFPAY ==
--- NOTE | 2023-08-23 | ETT_ITS ---
APPROVED REPORT Exam: Exercise Treadmill Patient Location: Out-Patient Room/Bed: Ordering Provider:JENNY WITT, Contact Number: [phone] BMI: 49.92 Baseline Rhythm: Sinus Rhythm Indications: Chest pain, Medical History Medical History: HTN, HLD, prediabetes, asthma, obesity Cardiac Medications: Vyvanse, indomethacin, buspirone, sertraline Allergies: NKDA Cardiac Risk Factors: Prediabetes, MOY, HTN, depression, anxiety, HLD Previous Cardiac Procedures: None Pretest Chest Pain Characteristics: None Exercise History: Indeterminate Physical Disabilities: None Lung Sounds: Clear to auscultation Heart Sounds: Regular Stress Test Details Test: Exercise stress testing was performed using a Meliton protocol. Rest Stress HR Resting HR Supine: 90 bpm Max Heart Rate (APMHR): 185 bpm Resting HR Standin bpm Target HR (85% APMHR): 157 bpm Max HR Achieved: 162 bpm % of APMHR: 88 Recovery HR: 98 bpm HR response to stress: Normal HR response to stress BP Resting BP Supine: 126/80 mmHg Resting BP Standin/100 mmHg Max BP: 238/110 mmHg Recovery BP: 128/82 mmHg BP response to stress: Abnormal hypertensive response to stress. ECG Resting ECG: Sinus Rhythm Ectopy: None Stress ECG: Sinus Tachycardia ST Change: No significant ST segment changes noted Arrhythmia: None Recovery ECG: Sinus Rhythm Recovery ST Change: No significant ST segment changes noted Recovery Arrhythmia: None Clinical Reason for Termination: Target HR Achieved, HTN Stress Symptoms: General Fatigue, Mod SOB Exercise duration: 04 min49 sec Highest Stage Reached: Stage 2: 2.5 mph at 12% grade. Exercise capacity: 6.81 METs Angina Score: None Rate Pressure Product: [id number] Stress ECG Conclusion 1. Resting electrocardiogram was within normal limits 2. Patient exercised on the Meliton protocol and completed a workload of 6.81 METS 3. Normal heart rate response to exercise. The patient achieved 88% of maximal predicted heart rate for age. Moderately hypertensive blood pressure response to exercise 4. There was no electrocardiographic evidence of myocardial ischemia 5. There were no dysrhythmias Stress Test Summary STAGE Time (mins) Speed (mph) Grade (%) HR BP SpO2 SYMPTOMS METS Supine 90 126/80 93 Standing 101 160/100 1 3 1.7 10 138 230/102 4.5 2 6 2.5 12 160 Mod SOB 7 1 min recovery 135 238/110 98 3 min recovery 108 138/100 6 min recovery 98 128/82 96 Patient noted to be hypertensive at 238/110 at 1 min of recovery. Denied any H/A, dizziness, visual c hangs or any other symptoms. BP WNL at completion of test. Patient left ambulatory in no apparent dis tress.
== END ==
PROVIDERS: PCP Nurse Practitioner Family; Visit Provider Nurse Practitioner Family
DX: R07.9 Chest pain, unspecified (principal)
CPT/HCPCS: 93017

== ENCOUNTER 2023-09-21 16:54 | Outpatient (REF) | payer BC, SELFPAY ==
[2023-09-21 21:34] LABS: TSH (W/Ref FT4) 0.93 uIU/mL (0.36-3.74); Uric Acid 6.1 mg/dL (3.5-7.2)
== END 2023-09-21 16:55 | disposition home or self-care (01) ==
LOC: NCHCN 16:54
PROVIDERS: PCP Nurse Practitioner Family; Visit Provider Nurse Practitioner Family
DX: I10 Essential (primary) hypertension (principal); M10.9 Gout, unspecified; E66.9 Obesity, unspecified
CPT/HCPCS: 84443; 84550

== ENCOUNTER 2024-01-29 17:02 | Outpatient (REF) | payer BC, SELFPAY | END 2024-01-29 17:03 | disposition home or self-care (01) | LOC: LBN 17:02 | PROVIDERS: PCP Nurse Practitioner Family; Visit Provider Physician Assistant | DX: J02.9 Acute pharyngitis, unspecified (principal) | CPT/HCPCS: 87077; 87070 ==

== ENCOUNTER 2024-03-11 17:04 | Outpatient (REF) | payer BC, SELFPAY ==
[2024-03-11 15:59] LABS: Hemoglobin A1C 8.5 % (<5.7)
[2024-03-11 16:00] LABS: ALT 89 U/L (16-63); AST 80 U/L (15-37); Albumin 3.5 g/dL (3.4-5.0); Alkaline Phosphatase 98 U/L (46-116); Anion Gap 8.4 mmol/L (3-11); BUN 12 mg/dL (7-18); Bacteria Rare HPF (Negative); Bilirubin, Total 0.63 mg/dL (0.2-1.0); C & S Indicated? No; CO2 27.6 mmol/L (21.0-32.0); CREATININE 0.8 mg/dL (0.70-1.30); Calcium 9.6 mg/dL (8.5-10.1); Chloride 103 mmol/L (98-107); Crystals Negative HPF (Negative); Epithelial Cells Rare HPF (Negative); Estimated GFR 117.63 (mL/min/1.73m2); Glucose 236 mg/dL (74-106); Mucus Trace (Negative); Other Cells Negative (Negative); Potassium 4.4 mmol/L (3.5-5.1); Sodium 139 mmol/L (136-145); Total Protein 7.9 g/dL (6.4-8.2); WBC Negative HPF (0-5)
[2024-03-11 16:10] LABS: COMMENT (LAB VIEW ONLY) 143.35 mg/dL; Microalb ug/mg Crea 63.6 ug/mg Cr
[2024-03-12 19:26] LABS: PSA, Screening 1.1 ng/mL (<=2.5)
== END 2024-03-11 17:05 | disposition home or self-care (01) ==
LOC: NCHCN 17:04
PROVIDERS: PCP Nurse Practitioner Family; Visit Provider Nurse Practitioner Family
DX: R39.9 Unspecified symptoms and signs involving the genitourinary system (principal); I10 Essential (primary) hypertension; R73.03 Prediabetes
CPT/HCPCS: 80053; 84153; 81015; 82043; 82570; 83036

== ENCOUNTER 2024-05-03 15:05 | Emergency (ER) | payer BC, SELFPAY ==
[2024-05-03] VITALS (22 sets, daily range): BP systolic 119–182; BP diastolic 69–115; PULSE 66–121; RESP 20; TEMP 36.4; O2SAT 91–98
--- NOTE | 2024-05-03 15:23 | ED.GENADUL_ITS ---
Discharge Plan Disposition Patient Disposition: Home Condition: Stable Discharge Details Clinical Impression: Lumbar paraspinal muscle spasm Primary Care Provider: Marnie Moreno ED Provider: Jude Jade Home Meds and New Rx's Prescriptions: New methocarbamol 750 mg tablet 750 mg PO QID 7 Days Qty: 28 0RF Continued allopurinol 300 mg tablet 300 mg PO DAILY buspirone 5 mg tablet 5 mg PO DAILY montelukast 10 mg tablet 10 mg PO DAILY lisdexamfetamine 30 mg capsule 30 mg PO BID Patient Comments: TAKE 1 CAPSULE BY MOUTH EVERY DAY sertraline 100 mg Tablet 100 mg PO DAILY indomethacin 50 mg Capsule 50 mg PO PRN PRN Discharge Instructions Instructions: Methocarbamol, Low Back Pain ED Additional Instructions: You were seen in the emergency department for your lumbar back spasm. Please use therapeutic dosing of Tylenol (acetamenophen) & Advil (ibuprofen) in an alternating fashion as follows: Take 1000mg of Tylenol every 6 hours without missing doses- that is 4 times per day. [place] in between the Tylenol dosings, take 400-600mg of Advil also on a 6 hour schedule, that is also 4 times per day. The daily maximum dosing of Tylenol is 4000mg, and the daily maximum dosing of Advil is 2400mg. This is safe to do for weeks. Please note that some common cold medications & prescription pain medications may contain acetamenophen and you need to read OTC drug labels and factor that in to maximum daily dosings. Please take the prescribed methocarbamol as directed for skeletal muscle relaxation, alternate heat and ice to the area, follow-up with physical therapy referral, please return to the emergency department for any urinary retention, loss of bowel underpants without noticing or numbness to the genitals. Stand Alone Forms: Physical Therapy Referral Referrals: Marnie Moreno [Primary Care Provider] - Discharge Data Discharge Date/Time-TO BE ENTERED AT DEPARTURE: 05/03/24 17:45 HPI General Date/Time Provider Initiated Documentation: 05/03/24 15:17 . HPI Narrative: 34 year-old male presents to ED today by EMS with a chief complaint of tweaked his back with onset around 0730 today while walking his dog- jerking motions to leash. Quality described as R lower back pain/SI pain, no radiation to urinary retention, numbness/tingling, numbness to genitalia, bowel incontinence, trauma. Severity is described as severe. Palliating factors include tried Tylenol and Motrin with heat pack. Provoking factors include nothing specific. Events leading up to the incident/Associated Symptoms: Patient has had lower back problems in the past. Patient not anticoagulated. Related Data Home Medications ?Medication ?Instructions ?Recorded ?Confirmed sertraline 100 mg tablet 100 mg PO DAILY 04/14/19 05/03/24 montelukast 10 mg tablet 10 mg PO DAILY 04/28/21 05/03/24 indomethacin 50 mg capsule 50 mg PO PRN PRN 10/14/22 05/03/24 allopurinol 300 mg tablet 300 mg PO DAILY 01/19/23 05/03/24 buspirone 5 mg tablet 5 mg PO DAILY 01/29/23 05/03/24 lisdexamfetamine 30 mg capsule 30 mg PO BID 03/11/24 05/03/24 methocarbamol 750 mg tablet 750 mg PO QID 7 days #28 tabs 05/03/24 Previous Rx's ?Medication ?Instructions ?Recorded methocarbamol 750 mg tablet 750 mg PO QID 7 days #28 tabs 05/03/24 Allergies Allergy/AdvReac Type Severity Reaction Status Date / Time No Known Allergies Allergy Verified 05/03/24 15:15 General Stated Complaint: Nk/Back Pain TYREE: 4 Review of Systems All systems reviewed & are unremarkable except as noted in HPI and below Exam Narrative Exam Narrative: GENERAL APPEARANCE: Well-nourished, non-toxic, awake and alert, atraumatic, no acute distress. SKIN: Warm, pink, dry, intact, without rashes/lesions/ulcerations. HEAD: Normocephalic, atraumatic, normal hair distribution for gender/age. EYES: Normal conjunctiva, no exudates on lids/lashes. ENT: Nares patent, no circumoral cyanosis, no facial swelling NECK: Supple, trachea midline, painless cervical ROM. LUNGS/CHEST: Non-labored respirations, normal A/P diameter, symmetrical expansion, no chest wall deformity HEART (CV/PV): No peripheral edema, no JVD. ABDOMEN: Soft, non-distended, no guarding. MSK: Normal ROM, no swelling/deformity to bilateral UEs or LEs, moving all ex tremities without weakness, no cyanosis, spine midline without tenderness, normal curvature, mild tenderness and palpable muscle tension R lower lumbar paraspinal region, no saddle anesthesia NEURO: Mental Status AAOx4 - alert to person, place, time, events No facial droop, no forehead involvement. Motor: No focal weakness - strength 5/5 in bilateral UEs and LEs, proximal and distal, symmetric. Sensory: sensation intact to light touch globally. Gait normal: patient ambulated without ataxia into ED room. PSYCH: euthymic, cooperative, pleasant, appropriate speech Course Vital Signs Vital signs: Vital Signs Temperature 36.4 C L 05/03/24 15:07 Pulse 105 H 05/03/24 15:07 Respiratory Rate 20 05/03/24 15:07 Blood Pressure 182/115 H 05/03/24 15:07 Pulse Oximetry 96 05/03/24 15:07 Temperature 36.4 C L 05/03/24 15:07 Pulse 105 H 05/03/24 15:07 Respiratory Rate 20 05/03/24 15:07 Blood Pressure 182/115 H 05/03/24 15:07 Blood Pressure Position Sitting 05/03/24 15:07 Pulse Oximetry 96 05/03/24 15:07 Oxygen Delivery Method Room Air 05/03/24 15:07 Oxygen Flow Rate 0 05/03/24 15:07 Pain Level 8 05/03/24 15:07 Medical Decision Making This dictation utilizes [id number] dictation software and may contain unedited grammatical errors. 34 year-old male presents to ED today by EMS with a chief complaint of tweaked his back with onset around 0730 today while walking his dog- jerking motions to leash. Quality described as R lower back pain/SI pain, no radiation to urinary retention, numbness/tingling, numbness to genitalia, bowel incontinence, trauma. Severity is described as severe. Palliating factors include tried Tylenol and Motrin with heat pack. Provoking factors include nothing specific. Events leading up to the incident/Associated Symptoms: Patient has had lower back problems in the past. Patients' medical history: Obesity, gout. Family and social history: Noncontributory. Pertinent exam findings / vital signs include right SI joint tenderness without crepitus or step-off, neurovascular intact in bilateral lower extremities, no bowel or urinary abnormalities, no saddle anesthesia. Differential / pathologies of concern include sacroiliitis, lumbar muscle spasm. Diagnostic studies of: -None. Interventions of: -Ativan, dexamethasone, lidocaine, patient is already taking Tylenol and NSAID. ED Course/Assessment/Plan: 34-year-old male presents with likely lumbar muscle spasm of back suffered at 730 this morning while walking his dog, has no signs of cauda equina or concerns for neurovascular compromise, I did service counselor him on regular use of Tylenol and NSAIDs as well as sent a prescription for methocarbamol recommend OTC Lidoderm patches and follow-up with physical therapy for exercise to improve his condition, strict return criteria for any urinary bowel changes, numbness to genitals, severe increase in back pain with fever. Findings not consistent with cauda equina, risk factors for spinal epidural abscess, neurovascular compromise of lower extremities. Disposition of lumbar paraspinal muscle spasm. Patient verbalized understanding of the plan and return to ED criteria and engaged in shared decision making. Medical Records Medical records reviewed: Yes I reviewed the patient's medical records. Quality:SDOH Health Related Social Needs: No Data to Display PFSH All Active Problems (Updated 05/03/24 @ 17:23 by AGUSTINA Webber) Lumbar paraspinal muscle spasm (Acute) Left wrist sprain (Acute) Anxiety (Chronic) Depression (Chronic) Sleep apnea (Acute) HTN (hypertension) (Chronic) Medical History (Updated 05/03/24 @ 17:23 by AGUSTINA Webber) Lower urinary tract symptoms (LUTS) Slow urinary stream Essential hypertension Allergic rhinitis Blood in urine Prediabetes Sleep walking disorder Obstructive sleep apnea Gout Elevated liver function tests BMI 45.0-49.9, adult Epistaxis Acute pharyngitis Exposure to the flu Social History Smoking/Tobacco Use Status: Never Smoking risk assessment performed?: Yes Alcohol Intake: current Alcohol Intake frequency: a few times a month Drug use: Never Substance use type: does not use Do you feel safe at home: Yes Do you feel safe in your relationship?: Yes
[2024-05-03] MEDS: LORazepam 2 MG/ML VIAL 1 MG IVP (15:38)
[2024-05-03] MEDS: Lidocaine 5% Patch 1 PATCH TP (15:38)
[2024-05-03] MEDS: Dexamethasone 10 MG/ML VIAL IVP (15:38)
== END 2024-05-03 17:45 | disposition home or self-care (01) ==
PROVIDERS: Emergency Provider Physician Assistant; PCP Nurse Practitioner Family
DX: M62.830 Muscle spasm of back (principal)
CPT/HCPCS: 96374; 96375; 99284; 99283; J1100; J2060

== ENCOUNTER 2024-06-11 12:20 | Outpatient (REF) | payer BC, SELFPAY ==
[2024-06-11 16:17] LABS: Microalb ug/mg Crea 13.5 ug/mg Cr
== END 2024-06-11 12:21 | disposition home or self-care (01) ==
LOC: NCHCN 12:20
PROVIDERS: PCP Nurse Practitioner Family; Visit Provider Nurse Practitioner Family
DX: R80.9 Proteinuria, unspecified (principal)
CPT/HCPCS: 82043; 82570

== ENCOUNTER 2024-07-23 12:19 | Outpatient (CLI) | payer BC, SELFPAY ==
--- NOTE | 2024-07-23 | DI.RAD_ITS ---
Exam(s) XR KNEE LT 3V AP,LAT,TAMMY EXAM: XR KNEE LT 3V AP,LAT,TAMMY CLINICAL HISTORY: M25.562 Pain in left knee. TECHNIQUE: 2D digital imaging was performed of the left knee. Three images were obtained. AP, late ral and PA tunnel views were obtained. COMPARISON: There are no priors for comparison. FINDINGS: BONES: No acute fracture is present. No bony destructive lesion is seen. JOINTS: The knee is normally aligned. No joint effusion is seen. No loose body. SOFT TISSUE: Normal. IMPRESSION: No acute abnormality. DATA REPOSITORY: RADIATION DOSE DELIVERED:
== END 2024-07-23 12:39 ==
LOC: DI 12:19
PROVIDERS: PCP Nurse Practitioner Family; Visit Provider Physician Assistant Medical
DX: M25.562 Pain in left knee (principal)
CPT/HCPCS: 73562

== ENCOUNTER 2024-08-20 02:03 | Outpatient (CLI) | payer BC, SELFPAY ==
--- NOTE | 2024-08-20 09:00 | DI.MRI_ITS ---
Exam(s) MR LOWER JOINT LT WO EXAM: MR LOWER JOINT LT WO CLINICAL HISTORY: ? LAT MENISCAL TEAR,INTERNAL DERANGEMENT, LT KNEE,CHONDROMALACIA PATELLA. TECHNIQUE: Multiplanar multisequence MRI was performed. COMPARISON: CR XR KNEE LT 3V AP,LAT,TAMMY from 07/23/2024 FINDINGS: The examination is limited due to patient motion artifact. BONES: There is no fracture or contusion pattern. JOINTS: Articular cartilage is unremarkable. No effusion is present. TENDONS: Extensor mechanism: Unremarkable. Medial retinaculum: Unremarkable. Lateral retinaculum: Unremarkable. Popliteus: Unremarkable. MUSCLES: Unremarkable. MENISCI: The medial meniscus is unremarkable. The lateral meniscus is unremarkable. SOFT TISSUES: There is mild edema seen anterior to the patella. No focal fluid collection is seen. LIGAMENTS: Anterior Cruciate: Unremarkable. Posterior Cruciate: Unremarkable. Medial Collateral:Unremarkable. Lateral Collateral: Unremarkable. OTHER: There is T2 hyperintense signal lateral to the iliotibial band. There is also hyperintense T2 signal interposed between the iliotibial band and the lateral femoral condyle. This can be seen with iliotibial band syndrome. IMPRESSION: 1. No evidence of a meniscal or ligament tear. 2. The articular cartilage is well maintained. No joint effusion is seen. 3. Hyperintense signal seen on the T2 weighted images between iliotibial band and the lateral femoral condyle raising the question of iliotibial band syndrome. DATA REPOSITORY:
== END 2024-08-20 02:23 ==
LOC: DI 02:03
PROVIDERS: PCP Nurse Practitioner Family; Visit Provider Student in an Organized Health Care Education/Training Program
DX: M22.42 Chondromalacia patellae, left knee
CPT/HCPCS: 73721